=== PATIENT | male | born 1975 | race Asian ===

== ENCOUNTER 2024-03-09 20:00 | Observation (INO) | payer MEDICAID, OTHER ==
[2024-03-09] MEDS: SODIUM CHLORIDE 0.9% 1,000 ML IV STA (20:25)
[2024-03-09 20:32] LABS: BASOPHILS % (AUTO) 0.3 %; EOSINOPHILS % (AUTO) 0.6 %; HCT - HEMATOCRIT 45.2 % (42.0-52.0); HGB - HEMOGLOBIN 14.9 g/dL (14.0-18.0); LYMPHOCYTES % (AUTO) 14.5 %; MEAN CORPUSCULAR HEMOGLOBIN 30.5 pg (27.0-31.0); MEAN CORPUSCULAR VOLUME 92.4 fL (80.0-94.0); MEAN PLATELET VOLUME 8.8 fL (7.4-11.4); MONOCYTES % (AUTO) 9.3 %; NEUTROPHILS % (AUTO) 74.9 %; PLT - PLATELET COUNT 219 10^3/uL (130-450); RED BLOOD COUNT 4.89 10^6/uL (4.70-6.10); RED CELL DISTRIBUTION WIDTH 13.7 % (12.0-15.0); WHITE BLOOD COUNT 17.3 x10^3/uL (4.8-10.8)
[2024-03-09 20:34] LABS: ABNORMAL LYMPHS % (MANUAL) 0 %
--- NOTE | 2024-03-09 20:37 | ED Physician Documentation ---
PD HPI ABD PAIN - Stated complaint Stated Complaint: ABD PX - Chief complaint Chief Complaint: Abd Pain - History obtained from History obtained from: Patient - Additional information Additional information: HPI from patient. Patient complains of 3 days of gradual onset, episodic left-sided abdominal pain. Pain is also located in the epigastrium to a lesser extent. It is associate with nausea but no vomiting. He denies history of similar symptoms. There have been no exacerbating or ameliorating factors. No past surgical history. Review of Systems Constitutional: denies: Fever, Chills, Sweats Cardiac: reports: Reviewed and negative Respiratory: reports: Reviewed and negative GI: reports: Abdominal Pain, Nausea. denies: Abdominal Swelling, Vomiting, Constipation, Diarrhea : denies: Dysuria, Frequency Skin: denies: Rash Musculoskeletal: denies: Back pain PD PAST MEDICAL HISTORY - Past Medical History Past Medical History: Yes Cardiovascular: Hypertension GI: Other Other Past Medical History: gallstones? pancreatitis? - Past Surgical History Past Surgical History: No - Present Medications Home Medications: Ambulatory Orders Medication Instructions Recorded Confirmed Atorvastatin [Lipitor] 10 mg PO DAILY 03/09/24 03/09/24 Losartan Potassium 25 mg PO DAILY 03/09/24 03/09/24 Potassium Citrate/Citric Acid 5 ml PO TID 03/09/24 03/09/24 [Cytra-K Oral Solution] - Allergies Allergies/Adverse Reactions: Allergies Allergy/AdvReac Type Severity Reaction Status Date / Time No Known Drug Allergies Allergy Verified 03/09/24 20:10 - Social History Does the pt smoke?: No Smoking Status: Never smoker Does the pt drink ETOH?: No - Immunizations Immunizations are current?: Yes PD ED PE NORMAL - Vitals Vital signs reviewed: Yes - General General: Alert and oriented X 3, Well developed/nourished, Other (appears to be in mild-moderate painful distress at times during H+P) - HEENT HEENT: Other (pasty mucous membranes) - Neck Neck: Supple, no meningeal sign - Cardiac Cardiac: RRR, No murmur - Respiratory Respiratory: No respiratory distress, Clear bilaterally - Abdomen Abdomen: Soft, Non distended - Derm Derm: Normal color, Warm and dry - Extremities Extremities: No edema PD ED PE EXPANDED - Abdomen Abdomen: Tender to palpation (diffuse TTP with relative sparing of LLQ; tenderness seems most pronounced in epigastrium, LUQ). No: Rebound, Guarding Results - Vitals Vitals: Vital Signs - 24 hr 03/09/24 03/09/24 03/09/24 20:02 20:42 21:01 Temperature 36.4 C L 36.2 C L Heart Rate 68 66 66 Respiratory 32 H 20 16 Rate Blood Pressure 130/77 140/77 H 172/95 H O2 Saturation 99 100 97 03/09/24 03/09/24 03/09/24 21:20 22:17 22:49 Temperature 36.3 C L 36.9 C Heart Rate 60 70 70 Respiratory 16 14 18 Rate Blood Pressure 167/116 H 128/89 H 139/81 H O2 Saturation 100 98 96 Oxygen O2 Source Room air - Labs Labs: Laboratory Tests 03/09/24 03/09/24 03/09/24 20:25 20:25 20:25 WBC 17.3 H RBC 4.89 Hgb 14.9 Hct 45.2 MCV 92.4 MCH 30.5 MCHC 33.0 RDW 13.7 Plt Count 219 MPV 8.8 Neut # (Auto) Not Reportable Lymph # (Auto) Not Reportable [place] # (Auto) Not Reportable Eos # (Auto) Not Reportable Baso # (Auto) Not Reportable Absolute Nucleated RBC Not Reportable Total Counted 100 Band Neuts % (Manual) 1 Reactive Lymphs % (Man) 3 Abnorm Lymph % (Manual) 0 Myelocytes % 1 H Nucleated RBC % Not Reportable Neutrophils # (Manual) 13.3 H Lymphocytes # (Manual) 2.4 Monocytes # (Manual) 1.4 H Eosinophils # (Manual) 0.0 Basophils # (Manual) 0.0 Differential Comment MANUAL DIFFERENTIAL Platelet Estimate NORMAL (130-450,000) Platelet Morphology NORMAL APPEARANCE RBC Morph Micro Appear NORMAL APPEARANCE Sodium 136 Potassium 4.2 Chloride 99 L Carbon Dioxide 29 Anion Gap 8.0 BUN 18 Creatinine 1.4 H Estimated GFR (MDRD) 54 L Glucose 138 H Calcium 9.4 Total Bilirubin 0.9 AST 52 H ALT 88 H Alkaline Phosphatase 89 Total Protein 7.7 Albumin 4.2 Globulin 3.5 Albumin/Globulin Ratio 1.2 Lipase 32 Urine Color DARK YELLOW Urine Clarity HAZY Urine pH 6.0 Ur Specific [place] >=1.030 H Urine Protein 100 H Urine Glucose (UA) NEGATIVE Urine Ketones 15 H Urine Occult Blood LARGE H Urine Nitrite NEGATIVE Urine Bilirubin SMALL H Urine Urobilinogen 1 (NORMAL) Ur Leukocyte Esterase NEGATIVE Urine RBC TNTC H Urine WBC 0-3 Ur Squamous Epith Cells RARE Squamous Urine Bacteria Rare Urine Mucus Few Strands Ur Microscopic Review INDICATED Urine Culture Comments NOT INDICATED - Rads (name of study) RUQ US Relevant Findings:: Prelim report reviewed, See rad report upright CXR Relevant Findings:: Prelim report reviewed, See rad report CT A/P with IV contrast Relevant Findings:: Prelim report reviewed, See rad report PD Medical Decision Making - ED course Complexity details: reviewed results, re-evaluated patient, considered differential, d/w patient ED course: Significant leukocytosis on CBC (17.3). Minimally elevated transaminases (AST 52, ALT 88). Normal bilirubin. Mildly elevated creatinine (1.4) but normal BUN (18). Patient is given 1 L IV normal saline, 4 mg IV Zofran, and 1 mg IV Dilaudid. He had some degree of relief with these interventions, but requested more pain medication and adequate analgesia was then achieved with a second dose (1mg) of IV Dilaudid. Right upper quadrant ultrasound has findings suggestive of cholecystitis; no gallstones are visualized and thus the impression per radiologist is "acute acalculous cholecystitis". A CT of the abdomen and pelvis with intravenous contrast was then undertaken. This again has findings suggestive of cholecystitis (gallbladder distention, pericholecystic inflammatory change). However, on this study, 2 gallstones are noted "wedged in the gallbladder neck" (per radiologist reading). Radiologist also notes the colon at the hepatic flexure has some findings suggestive of inflammatory changes, felt to be secondary to the adjacent cholecystitis. I discussed this case including the test results with the on-call surgeon for [facility] (Dr. Carlton) who accepts patient to surgical service. Departure - Departure Disposition: ED Place in Observation Clinical Impression: Cholecystitis Condition: Stable Discharge Date/Time: 03/10/24 00:25
[2024-03-09 20:45] LABS: ALBUMIN 4.2 g/dL (3.2-5.5); ALBUMIN/GLOBULIN RATIO 1.2 (1.0-2.2); BILIRUBIN,TOTAL 0.9 mg/dL (0.2-1.0); CALCIUM 9.4 mg/dL (8.5-10.3); CREATININE 1.4 mg/dL (0.6-1.3); POTASSIUM 4.2 mmol/L (3.5-4.5); TOTAL PROTEIN 7.7 g/dL (6.4-8.9)
[2024-03-09 20:47] LABS: BILIRUBIN,URINE SMALL (NEGATIVE); GLUCOSE, URINE (UA) NEGATIVE (NEGATIVE); KETONES,URINE (UA) 15 mg/dL (NEGATIVE); LEUKOCYTE ESTERASE, URINE NEGATIVE (NEGATIVE); NITRITE,URINE NEGATIVE (NEGATIVE); OCCULT BLOOD,URINE LARGE (NEGATIVE); PROTEIN,URINE 100 mg/dL (NEGATIVE); UROBILINOGEN,URINE 1 (NORMAL) E.U./dL (NORMAL)
[2024-03-09 20:49] LABS: CLARITY,URINE HAZY (CLEAR)
[2024-03-09] MEDS: ONDANSETRON 4 MG/2 ML VIAL IVP STA (20:52)
[2024-03-09] MEDS: HYDROmorphone 1 MG/ML CARPUJECT IVP STA ×2 (20:54→22:53)
[2024-03-09 21:01] LABS: BACTERIA,URINE Rare /HPF (None Seen); MUCUS,URINE Few Strands; RBC,URINE TNTC /HPF (0-5); SQUAMOUS EPITHELIAL CELL,UR RARE Squamous (<= Few); WBC,URINE 0-3 /HPF (0-3)
[2024-03-09 21:08] LABS: BAND NEUTROPHILS % (MANUAL) 1 %; LYMPHOCYTES # (MANUAL) 2.4 10^3/uL (1.5-3.5); LYMPHOCYTES % (MANUAL) 11 %; MONOCYTES # (MANUAL) 1.4 10^3/uL (0.0-1.0); MYELOCYTES % (MANUAL) 1 %; NEUTROPHILS # (MANUAL) 13.3 10^3/uL (1.5-6.6); REACTIVE LYMPHS % (MANUAL) 3 %
[2024-03-09 21:09] LABS: DIFFERENTIAL COMMENT MANUAL DIFFERENTIAL; PLATELET ESTIMATE, MANUAL NORMAL (130-450,000) (NORMAL); PLATELET MORPHOLOGY NORMAL APPEARANCE (NORMAL); RBC MORPHOLOGY (MULTIPLE) NORMAL APPEARANCE (NORMAL)
--- NOTE | 2024-03-09 21:23 | XRAY Report ---
PROCEDURE: Chest 1V INDICATIONS: abd. pain TECHNIQUE: One view of the chest was acquired. COMPARISON: None FINDINGS: Surgical changes and devices: None. Lungs and pleura: No pleural effusions or pneumothorax. Lungs are clear. Elevated right hemidiaph ragm Mediastinum: Mediastinal contours appear normal. Heart size is normal. Bones and chest wall: No suspicious bony lesions. Overlying soft tissues appear unremarkable. IMPRESSION: No acute cardiopulmonary findings Reviewed by: Nicko Cullen MD on 03/09/2024 8:21 PM AKDT Approved by: Nicko Cullen MD on 03/09/2024 8:21 PM AKDT Station ID: [id number]
[2024-03-09] MEDS ORDERED: iohexoL-300 100 ML VIAL ONE (21:49)
--- NOTE | 2024-03-09 21:58 | Ultrasound Report ---
PROCEDURE: Abdomen Limited INDICATIONS: abd. pain TECHNIQUE: Ultrasound of the abdominal right upper quadrant was obtained with image documentation. COMPARISONS: None. FINDINGS: Liver: Liver shows diffusely increased echogenicity without focal mass lesion. No intrahepatic duct al dilation. Gallbladder: Gallbladder wall thickening measures up to 6.4 cm. Although no gallstones are visualize d, there is pain while scanning drinking over the gallbladder, and pericholecystic fluid noted. Common Bile Duct: 5.1 mm. Pancreas: Unremarkable as visualized. Right Kidney: Appropriate in size and echotexture. No evidence of hydronephrosis. No shadowing calc abebe. No solid or cystic mass lesion. IMPRESSION: Acute acalculous cholecystitis. Reviewed by: Nicko Cullen MD on 03/09/2024 8:57 PM OLIVERIO Approved by: Nicko Cullen MD on 03/09/2024 8:57 PM OLIVERIO Station ID: [id number]
[2024-03-09] MEDS: iohexoL-300 100 ML VIAL IVP ONE (22:21)
--- NOTE | 2024-03-09 22:42 | CT Report ---
PROCEDURE: Abdomen/Pelvis W INDICATIONS: abd. pain TECHNIQUE: Helical axial CT of the abdomen and pelvis was obtained after intravenous contrast adminis tration and reformatted in multiple planes. Radiation dose reduction was achieved using automated exp osure control or adjustment of mA and/or kV according to patient size. COMPARISON: None FINDINGS: Lower thorax: Platelike atelectasis right base No hiatal hernia. Liver: Hepatic parenchyma is diffusely decreased in attenuation without focal mass lesion. Biliary system: Gallbladder is distended, and pericholecystic inflammatory change noted. There are 2 separate gallstones noted wedged in the gallbladder neck, not imaged on the prior ultrasound. Adjace nt loop of colon at the hepatic flexure is slightly inflamed as well, although this is felt to be sec ondary Pancreas: Unremarkable without mass or inflammation evident. Spleen: Normal in size and density. Adrenals: Normal morphology and density. Reproductive system: Unremarkable as visualized. Urinary system: Normal renal size and attenuation. No renal calculi, hydronephrosis, or solid mass p resent. Urinary bladder unremarkable. Small bilateral renal cysts Gastrointestinal system: The bowel appears unremarkable with no evidence of bowel obstruction or inf lammation. The stomach appears unremarkable. Multiple diverticuli arise from the entire colon. No ob struction Appendix: Normal-appearing appendix identified Peritoneal spaces: No mesenteric or retroperitoneal adenopathy. No free air. No free fluid. Vasculature: The IVC, aorta and iliac vasculature are unremarkable. Abdominal wall: Abdominal wall is intact without evidence of ventral or inguinal hernias. Musculoskeletal: Normal bone mineralization. No acute fractures. IMPRESSION: Cholecystitis. There are 2 calcified stones noted wedged in the gallbladder neck which were not ident ified on the prior ultrasound. Colonic diverticulosis. Additionally, loop of colon at the hepatic flexure is immediately adjacent to the gallbladder shows some inflammatory change, felt to be secondary to adjacent cholecystitis. The differential would include diverticulitis without abscess or obstruction. Reviewed by: Nicko Cullen MD on 03/09/2024 9:40 PM AKWEN Approved by: Nicko Cullen MD on 03/09/2024 9:40 PM AKDT Station ID: [id number]
[2024-03-10] MEDS: PIPERACILLIN/TAZOBACTAM 3.375 GM in SODIUM CHLORIDE 0.9% MINIBAG 100 ML IV STA (00:14)
[2024-03-10] MEDS: SODIUM CHLORIDE FLUSH 0.9% 10 ML SYRINGE IVP SCH (00:44)
[2024-03-10] MEDS: D5.45NS W/20 MEQ KCL 1,000 ML IV SCH (00:44)
[2024-03-10] MEDS: HYDROmorphone 0.5 MG/0.5 ML SYRINGE IVP PRN (02:48)
[2024-03-10] MEDS: SODIUM CHLORIDE FLUSH 0.9% 10 ML SYRINGE IVP PRN (02:52)
[2024-03-10] MEDS: PIPERACILLIN/TAZOBACTAM 3.375 GM in SODIUM CHLORIDE 0.9% MINIBAG 100 ML IV SCH ×2 (04:16→16:14)
[2024-03-10] MEDS: oxyCODONE 5 MG TABLET PO PRN (04:16)
--- NOTE | 2024-03-10 10:03 | CONSULTATION NOTE ---
Referring Provider Name of Referring Provider:: Dr. Gume Kingsley Consult Date: 03/09/24 Chief Complaint - Chief Complaint Chief Complaint: Persistent and excrutiating RUQ pain History of Present Illness - Admitted From Admitted From:: ED - History Obtained From Records Reviewed: Yes History obtained from: Patient and chart Exam Limitations: None - History of Present Illness HPI Comment/Other: I received a phone call from Dr. Yonathan Carlton this morning clearly communicating that he had been called prior to midnight about this patient by Dr. Kingsley who requested surgical consultation-admission. Dr. Carlton wrote admission orders and explained that I would be seeing the patient in the morning. The patient's symptoms started Monday evening after a meal of either [employer] or fried chicken. The pain was bad enough that he wanted to go to the Emergency Department but he held off and the pain eventually subsided at 299 morning. The pain recurred yesterday and with that he came to our ED. His , who was present in the room the entire time, states that he is usually very stoic and rarely if ever sees a physician and that in fact this is his first time in a hospital. The pain is described as sharp with a penetrating front to back quality. It has a colicky nature (my words). It is accompanied by nausea but he has not vomited. Prior to Monday he had not had these symptoms. He denies hematemesis, melena, hemtochezia, unexplained weight loss, or change in his bowel habits. History - Past Medical History Cardiovascular: reports: Hypertension Other Past Medical History: gallstones? pancreatitis? - POLST Patient has POLST: No Meds/Allgy - Home Medications Home Medications: Ambulatory Orders Medication Instructions Recorded Confirmed Atorvastatin [Lipitor] 10 mg PO DAILY 03/09/24 03/09/24 Losartan Potassium 25 mg PO DAILY 03/09/24 03/09/24 Potassium Citrate/Citric Acid 5 ml PO TID 03/09/24 03/09/24 [Cytra-K Oral Solution] - Allergies Allergies/Adverse Reactions: Allergies Allergy/AdvReac Type Severity Reaction Status Date / Time No Known Drug Allergies Allergy Verified 03/09/24 20:10 Review of Systems - Constitutional Constitutional: denies: Fatigue, Fever, Chills, Malaise - Eyes Eyes: denies: Pain - Ears, Nose & Throat Ears, Nose & Throat: denies: Ear pain, Hearing loss - Cardiovascular Cariovascular: denies: Irregular heart rate, Palpitations, Chest pain - Respiratory Respiratory: reports: Snoring. denies: Cough, Wheezing - Gastrointestinal Gastrointestinal: reports: Abdominal pain, Nausea. denies: Change in bowel habits, Rectal bleeding, Black stools, Bloody stools, Vomiting, Bile emesis, Hector blood emesis - Genitourinary Genitourinary: denies: Dysuria - Neurological Neurological: denies: General weakness, Focal weakness, Headache - Psychiatric Psychiatric: denies: Depression, Anxiety Exam - Vital Signs Reviewed Vital Signs: Yes Vital Signs: Vital Signs x48h Temp Pulse Resp BP Pulse Ox 03/10/24 07:44 37.2 C 73 24 149/87 H 96 03/10/24 04:13 37.1 C 68 26 H 137/89 H 95 - Physical Exam General Appearance: positive: No acute distress Eyes Bilateral: positive: No lid inflammation, Conjunctivae nml, No scleral icterus ENT: positive: No signs of dehydration Neck: positive: Trachea midline. negative: Carotid bruit Respiratory: positive: Chest non-tender, No respiratory distress, Breath sounds nml Cardiovascular: positive: Regular rate & rhythm, No murmur, No gallop Abdomen: positive: Nml bowel sounds, Tenderness (RUQ), Other (Obese) Skin: positive: Color nml, No rash, Warm, Dry Extremities: positive: Non-tender, Full ROM, Nml appearance, Other (SCDs in place.). negative: Calf tenderness, Pillo's sign/cords Neurologic/Psychiatric: positive: Oriented x3, Motor nml, Sensation nml, Mood/affect nml Conclusion and Plan - Lab Results Laboratory Results 03/09/24 20:25: Urine Color DARK YELLOW, Urine Clarity HAZY, Urine pH 6.0, Ur Specific [place] >=1.030 H, Urine Protein 100 H, Urine Glucose (UA) NEGATIVE, Urine Ketones 15 H, Urine Occult Blood LARGE H, Urine Nitrite NEGATIVE, Urine Bilirubin SMALL H, Urine Urobilinogen 1 (NORMAL), Ur Leukocyte Esterase NEGATIVE, Urine RBC TNTC H, Urine WBC 0-3, Ur Squamous Epith Cells RARE Squamous, Urine Bacteria Rare, Urine Mucus Few Strands, Ur Microscopic Review INDICATED, Urine Culture Comments NOT INDICATED 03/09/24 20:25: Sodium 136, Potassium 4.2, Chloride 99 L, Carbon Dioxide 29, Anion Gap 8.0, BUN 18, Creatinine 1.4 H, Estimated GFR (MDRD) 54 L, Glucose 138 H, Calcium 9.4, Total Bilirubin 0.9, AST 52 H, ALT 88 H, Alkaline Phosphatase 89, Total Protein 7.7, Albumin 4.2, Globulin 3.5, Albumin/Globulin Ratio 1.2, Lipase 32 03/09/24 20:25: WBC 17.3 H, RBC 4.89, Hgb 14.9, Hct 45.2, MCV 92.4, MCH 30.5, MCHC 33.0, RDW 13.7, Plt Count 219, MPV 8.8, Neut # (Auto) Not Reportable, Lymph # (Auto) Not Reportable, [place] # (Auto) Not Reportable, Eos # (Auto) Not Reportable, Baso # (Auto) Not Reportable, Absolute Nucleated RBC Not Reportable, Total Counted 100, Band Neuts % (Manual) 1, Reactive Lymphs % (Man) 3, Abnorm Lymph % (Manual) 0, Myelocytes % 1 H, Nucleated RBC % Not Reportable, Neutrophils # (Manual) 13.3 H, Lymphocytes # (Manual) 2.4, Monocytes # (Manual) 1.4 H, Eosinophils # (Manual) 0.0, Basophils # (Manual) 0.0, Differential Co mment MANUAL DIFFERENTIAL, Platelet Estimate NORMAL (130-450,000), Platelet Morphology NORMAL APPEARANCE, RBC Morph Micro Appear NORMAL APPEARANCE - Diagnostic Imaging Results Diagnostic Imaging Results: positive: Final report reviewed - Diagnosis Diagnosis: Acute calculous cholecystitis - Consultation Note Consultation Note: I have recommended and offered laparoscopic cholecystectomy, possible open cholecystectomy, possible intraoperative cholangiogram, possible common bile duct exploration to be performed today. I have explained the pathophysiology, anatomy, and proposed surgery to the patient and have diagrammed this on paper with a Sharpie and have given them (patient and ) the diagrams. The indications, procedure, alternatives including no surgery and the possible complications including but not limited to infection, bleeding requiring transfusion, bile duct injury and was explained (and included in the diagrams) and all questions answered. The patient is already NPO and has been receiving IV fluids and antibiotics. I explained that if the surgery goes well and the patient does well he should be able to be discharged home following the surgery. The likely postoperative course and instructions were discussed at length. I asked that if there is any way to make his stay at [facility] more comfortable to let us know and he stated that he would. Over 45 minutes of [id number] time ws spent with the patient and in completing the requisite paperwork CPT 53190
--- NOTE | 2024-03-10 11:03 | ANESTHESIA ---
Pre-Anesthesia VS, & Labs - Diagnosis Diagnosis Acute calculous cholecystitis - Procedure LAPARASCOPIC CHOLECYSTECTOMY Vital Signs: Temp Pulse Resp BP Pulse Ox O2 Flow Rate 37.2 C 73 24 149/87 H 96 03/10/24 07:44 03/10/24 07:44 03/10/24 07:44 03/10/24 07:44 03/10/24 07:44 Height: 5 ft 5 in Weight (kg): 105 kg Body Mass Index: 38.5 BMI Classification: Obese - NPO >8 hours Last Fluid Intake: 0430 - Lab Results Current Lab Results: Laboratory Tests 03/09/24 20:25: Sodium 136, Potassium 4.2, Chloride 99 L, Carbon Dioxide 29, Anion Gap 8.0, BUN 18, Creatinine 1.4 H, Estimated GFR (MDRD) 54 L, Glucose 138 H, Calcium 9.4, Total Bilirubin 0.9, AST 52 H, ALT 88 H, Alkaline Phosphatase 89, Total Protein 7.7, Albumin 4.2, Globulin 3.5, Albumin/Globulin Ratio 1.2, Lipase 32 03/09/24 20:25: WBC 17.3 H, RBC 4.89, Hgb 14.9, Hct 45.2, MCV 92.4, MCH 30.5, MCHC 33.0, RDW 13.7, Plt Count 219, MPV 8.8, Neut # (Auto) Not Reportable, Lymph # (Auto) Not Reportable, [place] # (Auto) Not Reportable, Eos # (Auto) Not Reportable, Baso # (Auto) Not Reportable, Absolute Nucleated RBC Not Reportable, Total Counted 100, Band Neuts % (Manual) 1, Reactive Lymphs % (Man) 3, Abnorm Lymph % (Manual) 0, Myelocytes % 1 H, Nucleated RBC % Not Reportable, Neutrophils # (Manual) 13.3 H, Lymphocytes # (Manual) 2.4, Monocytes # (Manual) 1.4 H, Eosinophils # (Manual) 0.0, Basophils # (Manual) 0.0, Differential Comment MANUAL DIFFERENTIAL, Platelet Estimate NORMAL (130-450,000), Platelet Morphology NORMAL APPEARANCE, RBC Morph Micro Appear NORMAL APPEARANCE Fish Bones: 03/09/24 20:25 03/09/24 20:25 Home Medications and Allergies Home Medications: Ambulatory Orders Atorvastatin [Lipitor] 10 mg PO DAILY 03/09/24 Losartan Potassium 25 mg PO DAILY 03/09/24 Potassium Citrate/Citric Acid [Cytra-K Oral Solution] 5 ml PO TID 03/09/24 Active Medications Acetaminophen (Acetaminophen 500 Mg Tablet) 500 mg PO Q6HR PRN PRN Reason: Abdominal Pain Hydromorphone HCl (Hydromorphone 0.5 Mg/0.5 Ml Syringe) 0.5 mg IVP Q6HR PRN PRN Reason: Abdominal Pain Last Admin: 03/10/24 06:31 Dose: 0.5 mg Potassium Chloride/Dextrose/Sod Cl (D5.45ns W/20 Meq Kcl) 1,000 mls @ 125 mls/hr IV .Q8H [facility] Last Admin: 03/10/24 00:44 Dose: 125 mls/hr Piperacillin Sod/Tazobactam (Sod 3.375 gm/ Sodium Chloride) 100 mls @ 25 mls/hr IV Q8H [facility] Last Infusion: 03/10/24 08:43 Dose: Infused Oxycodone HCl (Oxycodone 5 Mg Tablet) 5 mg PO Q6HR PRN PRN Reason: Abdominal Pain Last Admin: 03/10/24 04:16 Dose: 5 mg Sodium Chloride (Sodium Chloride Flush 0.9% 10 Ml Syringe) 10 ml IVP PRN PRN PRN Reason: NEEDED PER PROVIDER ORDERS Last Admin: 03/10/24 02:52 Dose: 10 ml Sodium Chloride (Sodium Chloride Flush 0.9% 10 Ml Syringe) 10 ml IVP 0100,0900,1700 [facility] Last Admin: 03/10/24 10:32 Dose: Not Given Atorvastatin [Lipitor] 10 mg PO DAILY 03/09/24 Losartan Potassium 25 mg PO DAILY 03/09/24 Potassium Citrate/Citric Acid [Cytra-K Oral Solution] 5 ml PO TID 03/09/24 Allergies/Adverse Reactions: Allergies Allergy/AdvReac Type Severity Reaction Status Date / Time No Known Drug Allergies Allergy Verified 03/09/24 20:10 Anes History & Medical History - Anesthetic History Anesthesia Complications: reports: No previous complications Family history of Anesthesia Complications: Denies - Medical History Cardiovascular: reports: Hypertension (LAST [place] THE NIGHT OF 03/08; DENIES mi OR CHEST PAIN WITH EXERTION) Pulmonary: reports: None Gastrointestinal: reports: None, Other Smoking Status: Never smoker Psychosocial: reports: No issues indicated Other Past Medical History: gallstones? pancreatitis? Exam General: Alert Dental: WNL Neck Mobility: Normal Mallampati classification: III Thyromental Distance: less than 4 cm Plan Anesthesia Type: General Consent for Procedure(s) Verified and Reviewed: Yes Code Status: Attempt Resuscitation ASA classification: 2-Mild systemic disease Is this case an emergency?: No
[2024-03-10] MEDS ORDERED: NALOXONE 0.4 MG/ML VIAL IVP PRN (11:04)
[2024-03-10] MEDS ORDERED: MORPHINE 2 MG/ML CARPUJECT IVP PRN (11:04)
[2024-03-10] MEDS ORDERED: HYDROmorphone 0.5 MG/0.5 ML SYRINGE IVP PRN ×2 (11:04→15:38)
[2024-03-10] MEDS ORDERED: ePHEDrine 50 MG/ML VIAL IVP PRN (11:04)
[2024-03-10] MEDS ORDERED: fentaNYL 100 MCG/2 ML VIAL IVP PRN (11:04)
[2024-03-10] MEDS ORDERED: METOCLOPRAMIDE 10 MG/2 ML VIAL IVP PRN (11:04)
[2024-03-10] MEDS ORDERED: ATROPINE ABBOJECT 1 MG/10 ML SYRINGE IVP PRN (11:04)
[2024-03-10] MEDS ORDERED: ONDANSETRON 4 MG/2 ML VIAL IVP PRN ×2 (11:04→15:38)
[2024-03-10] MEDS ORDERED: PROPOFOL 200 MG/20 ML VIAL IVP ONE (11:31)
[2024-03-10] MEDS ORDERED: LIDOCAINE-PF 2% 10 ML AMP SUBQ ONE (11:31)
[2024-03-10] MEDS ORDERED: MIDAZOLAM 2 MG/2 ML VIAL ONE (11:31)
[2024-03-10] MEDS ORDERED: ROCURONIUM 50 MG/5 ML VIAL ONE (11:31)
[2024-03-10] MEDS ORDERED: fentaNYL 100 MCG/2 ML VIAL ONE ×2 (11:32→14:35)
[2024-03-10] MEDS ORDERED: BUPIVACAINE 0.5% PF 10 ML VIAL ONE (11:35)
[2024-03-10] MEDS ORDERED: LACTATED RINGERS 1,000 ML IV SCH (12:00)
[2024-03-10] MEDS ORDERED: ACETAMINOPHEN 1,000 MG/100 ML 1,000 MG/100 ML BAG IV ONE (12:29)
[2024-03-10] MEDS ORDERED: ePHEDrine 50 MG/ML VIAL IVP ONE (12:49)
[2024-03-10] MEDS ORDERED: PHENYLEPHRINE HCL 0.5 MG/5 ML AMPULE ONE (12:51)
[2024-03-10] MEDS: BUPIVACAINE 0.5% PF 10 ML VIAL IM ONE (13:00)
[2024-03-10] MEDS ORDERED: DEXAMETHASONE 4 MG/ML VIAL ONE (13:05)
[2024-03-10] MEDS ORDERED: ONDANSETRON 4 MG/2 ML VIAL ONE (13:05)
[2024-03-10] MEDS ORDERED: SUGAMMADEX 200 MG/2 ML VIAL IVP ONE (14:02)
[2024-03-10] MEDS ORDERED: KETOROLAC 30 MG/ML VIAL ONE (14:02)
[2024-03-10] MEDS: LACTATED RINGERS 600 ML IV ONE (14:58)
--- NOTE | 2024-03-10 15:03 | OPERATIVE REPORT ---
Operative Report - General Admit Date: 03/09/24 Procedure Date: 03/10/24 Planned Procedure: Laparoscopic cholecystectomy, possible open cholecystectomy, possible intraoperative cholangiogram, possible common bile duct exploration Pre-Op Diagnosis: Acute likely suppurative cholecystitis Procedure Performed: Laparoscopic cholecystectomy and umbilical herniorrhaphy Post Op Diagnosis: Acute suppurative cholecystitis and umbilical hernia - Procedure Note Primary Surgeon: Chang Kate MD Anesthesia Provider: Daniel Lewis CRNA Anesthesia Technique: General ET tube, Local (30 mL of half percent Marcaine) IV Fluids (mL): 1,200 Estimated Blood Loss (mL): 50 Drain/Tube Type: Other (None.) Indications: Symptomatic acute and likely suppurative cholecystitis Findings: Very thick walled distended and massively inflamed gallbladder with dense omental adhesions Small umbilical hernia Complications: None. - Other Other Information/Narrative: After verbal and written informed consent was obtained detailing the operation, the alternatives to the operation including no operation, risks of infection, bleeding requiring transfusion with its risks, nerve injury, and and after I met with the patient confirming the surgery, the patient was brought to the operative suite and placed supine on the operating table. Great care was taken to avoid pressure points to prevent pressure necrosis or nerve injury. Monitoring devices were applied along with TEDs and pneumatic compressive stockings (to prevent DVT). The patient received preoperative antibiotics for surgical prophylaxis. Daniel Lewis CRNA sedated and anesthetized the patient for the entire procedure. The patient was prepped and draped in usual sterile manner. A "time in" then confirmed that the patient was identified with 3 identifiers (name, date, and medical record number), the history and physical was in the chart, the signed consent confirming the procedure was in the chart, the patient was in the correct position, the aforementioned prophylactic measures were in place were given, we had the correct personnel and equipment to complete the procedure and that anesthesia, and the surgical team was given an opportunity to express any concerns. With the agreement of everyone in the room, we proceeded with the operation. The initial incision was supraumbilical due to concerns and I had about the patient's large size and dissection to the linea alba was completed using blunt dissection. A very small umbilical hernia was found that I did not appreciate preoperatively and this was used to gain entry into the abdomen. I placed an 0 Vicryl surrounding this opening hoping that I could use this to close the fascia at the completion of the case. Obviously, it was not tied.The defect was an extraordinarily tight fit for the 10/12 mm Montez cannula. The balloon was inflated to keep the port in position. The abdominal cavity was insufflated with carbon dioxide to a steady-state pressure of first 12 and then15 mmHg. This was necessitated by the fact that there was not significant room in the right upper quadrant likely due to the patient's body habitus and weight. 3 additional 5 mm ports were placed in standard locations for laparoscopic cholecystectomy (subxiphoid and 2 right subcostal) under direct vision of the 30 degree laparoscope and without incident. The patient was then placed in reverse Trendelenburg position and was rotated slightly to their left. Upon entering the abdomen there was clear there were very dense adhesions to the gallbladder and liver. Photographs were taken of this. These were taken down using traction and countertraction. Once the gallbladder was exposed it was c lear that it was massively inflamed and distended. There is no way to grasp the gallbladder with the ratcheting traumatic graspers. As such I drained the gallbladder using a laparoscopic needle of 100 cc of dark green thick bile. The gallbladder fundus was grasped only with difficulty with a Prestige (traumatic) graspers. Multiple adhesions had to be taken down by blunt and sharp dissection along with electrocautery. Eventually, I identified the infundibulum and this was then grasped and retracted superiorly and laterally. Dissection was then begun at the angle of Calot. The cystic duct and (slightly medially and posteriorly), cystic artery were clearly identified. The critical view was obtained and a photograph taken. 2 clips distally and 1 clip proximally were placed to control the cystic duct initially. This was transected without incident using laparoscopic scissors. This allowed for a better view of the cystic artery. 2 clips proximally and 1 clip distally were then placed to control the cystic artery. The artery was then transected using laparoscopic scissors without incident. The gallbladder was then removed from its fossa in a retrograde manner using electrocautery. This was exceedingly difficult due to the fact that there was no room to maneuver again due to patient's habitus and the fact that the gallbladder itself was intrahepatic as well as edematous. With the 30 degree 5 mm scope in the subxiphoid position, the gallbladder was placed in an Endo Catch bag to be extracted through the 12 mm port site. I irrigated the right upper quadrant with liter of warm sterile saline and the area was aspirated dry. I inspected the gallbladder fossa and there was no bleeding or bile leak. Photographs were taken of this. Clips on the cystic duct and cystic artery appeared to be secure. I briefly visually explored the abdomen. There was no other evidence of overt pathology. I injected the port sites at the peritoneal, fascial, and skin levels under direct vision with 0.5% Marcaine. The insufflation was released and all ports were removed. At this point there was simply no way that the gallbladder was going to come out through the very small umbilical hernia site. I had to extend the incision superiorly 4 cm in order to extract this gallbladder. Again it should be noted that I had drained this gallbladder but the gallbladder itself remained exceedingly large and very thick walled. I estimate the length to be 15 cm and the width/diameter to be 7 cm. Following gallbladder removal, the remaining carbon dioxide was expelled from the abdomen. The fascia the umbilicus was approximated using 2 oypdnj-me-[id number] 0 PDS sutures as well as the previously placed 0 Vicryl suture. The skin at each port site was approximated using a subcuticular 4-0 Monocryl. The skin was cleaned of its prep and Dermabond was applied. At this point a "timeout" was performed that confirmed that all counts were correct, the procedure that was performed, the blood loss, the IV fluids administered, the patient's condition and any concerns of the operating team had. Dressings were then applied. Having tolerated the procedure well, the patient was extubated and taken to recovery room in good and stable condition. The plan is for outpatient discharge when the patient is adequately recovered. Due to the inflammatory/infectious nature combined with the patient's body habitus, this case took 2 hours and 11 minutes which is in excess of a normal laparoscopic cholecystectomy and hence a modifier 22 should be appended. CPT laparoscopic cholecystectomy 86279 mod 22 CPT umbilical herniorrhaphy [id number] This document was created in part using voice recognition technology. Because of the inherent limitations of the system, occasional same sounding word substitutions and grammatical errors do occur and persist despite proofreading. Please read this document for context.
[2024-03-10] MEDS ORDERED: HYDROcod/ACETAM 5/325 MG TABLET PO PRN (15:38)
--- NOTE | 2024-03-10 21:51 | ANESTHESIA POST OP EVALUATION ---
Anesthesia Post Eval - Post Anesthesia Eval Vitals: Last Vital Signs Temp 36.7 C 03/10/24 20:51 Pulse 65 03/10/24 20:51 Resp 18 03/10/24 20:51 BP 116/66 03/10/24 20:51 Pulse Ox 94 03/10/24 20:51 O2 Flow Rate CV Function Including HR & BP: Stable Pain Control: Satisfactory Nausea & Vomiting: Negative Mental Status: Baseline Respiratory Status: Airway Patent Hydration Status: Satisfactory Anesthesia Complications: None
[2024-03-11] MEDS: ACETAMINOPHEN 500 MG TABLET PO PRN (04:34)
[2024-03-11 15:58] VITALS: BP 135/87; O2SAT 95
== END 2024-03-11 16:00 | disposition home or self-care (01) ==
LOC: ED 20:00 → MS2 23:42
PROVIDERS: ADMIT Surgery; ATTEND Surgery
PROC: 0FT44ZZ Resection of Gallbladder, Percutaneous Endoscopic Approach (ICD-10-PCS; principal; 2024-03-09)
DX: K80.00 Calculus of gallbladder with acute cholecystitis without obstruction (principal); K82.8 Other specified diseases of gallbladder; K42.9 Umbilical hernia without obstruction or gangrene; I10 Essential (primary) hypertension; E66.9 Obesity, unspecified; K57.30 Diverticulosis of large intestine without perforation or abscess without bleeding; Z68.38 Body mass index [BMI] 38.0-38.9, adult; Z79.899 Other long term (current) drug therapy
CPT/HCPCS: 36415; 47562; 71045; 74177; 76705; 80053; 81001; 83690; 85025; 96365; 96366; 96375; 96376; 99285; A9270; G0378; J0131; J1170; J2372; J7120; Q9967; 81003; 87086